=== PATIENT | female | born 1945 | race Caucasian/White ===

== ENCOUNTER 2017-07-24 18:54 | Emergency (ER) | payer OTHER, MEDICARE ==
--- NOTE | 2017-07-24 19:43 | EDPHY ---
H & P Stated Complaint: R breast partial mastectomy 3 wks ago, today swelling pain and redness Time Seen by Provider: 07/24/17 19:07 HPI/ROS: CHIEF COMPLAINT: Redness and swelling right axilla HISTORY OF PRESENT ILLNESS: 72-year-old female with breast cancer s/p right mastectomy and axillary lymph node dissection 3 weeks ago presents with redness and swelling in the right axilla. Onset of swelling and redness today, gradually increasing since then. Associated with moderate pain. The pain increases with right arm movement. No drainage or fever. REVIEW OF SYSTEMS: complete 10 point ROS negative except at noted in the HPI - Medical/Surgical History Hx Asthma: No Hx Chronic Respiratory Disease: No Hx Diabetes: No Hx Cardiac Disease: No Hx Renal Disease: No Hx Cirrhosis: No Hx Alcoholism: No Hx HIV/AIDS: No Hx Splenectomy or Spleen Trauma: No Other PMH: breast [place], [place], deaf in right ear, hearing loss left ear - Social History Smoking Status: Never smoked - Physical Exam Exam: General Appearance: Alert, pleasant Eyes: Pupils equal and round, no conjunctival pallor ENT, Mouth: Mucous membranes moist Neck: Normal inspection Respiratory: Lungs are clear to auscultation Cardiovascular: Regular rate and rhythm Gastrointestinal: Abdomen is soft and nontender Neurological: A&O, nonfocal, normal gait Skin: Warm and dry Extremities: Right axillary area-linear surgical incision intact, with erythema adjacent to the incision; 5cm area fluctuance under the surgical incision Psychiatric: Mood and affect normal Constitutional: Initial Vital Signs Temperature (C) 37.3 C 07/24/17 18:57 Heart Rate 90 07/24/17 18:57 Respiratory Rate 18 07/24/17 18:57 Blood Pressure 163/86 H 07/24/17 18:57 O2 Sat (%) 95 07/24/17 18:57 O2 Delivery Mode Room Air Allergies/Adverse Reactions: doxycycline Allergy (Verified 07/24/17 18:57) Sulfa (Sulfonamide Antibiotics) Allergy (Verified 07/24/17 18:57) Home Medications: Medication Instructions Recorded Aspirin 07/24/17 Calcium 07/24/17 Cephalexin [Keflex (*)] 500 mg PO TID #15 cap 07/24/17 Crestor 07/24/17 Medical Decision Making ED Course/Re-evaluation: This pt presents with right axillary cellulitis after lymph node dissection. Subcutaneous fluid collection concerning for abscess versus seroma. Consulted Dr. Lawson. Dr. Lawson saw pt in ED, aspirated serous fluid from subQ fluid collection. Sent for culture. Presentation c/w cellulitis. Doubt abscess. Rochephin 1gm IV given. Rx for Keflex. Pt plans to f/u surgeon tomorrow. Differential Diagnosis: includes though not limited to abscess, cellulitis, seroma, lymphangitis, DVT - Data Points Laboratory Results: Laboratory Results 07/24/17 19:45 07/24/17 19:45 07/24/17 07/24/17 19:45 19:45 WBC 10.57 10^3/uL H 10^3/uL (3.80-9.50) RBC 4.22 10^6/uL 10^6/uL (4.18-5.33) Hgb 13.2 g/dL g/dL (12.6-16.3) Hct 39.7 % % (38.0-47.0) MCV 94.1 fL fL (81.5-99.8) MCH 31.3 pg pg (27.9-34.1) MCHC 33.2 g/dL g/dL (32.4-36.7) RDW 13.0 % % (11.5-15.2) Plt Count 186 10^3/uL 10^3/uL (150-400) MPV 9.3 fL fL (8.7-11.7) Neut % (Auto) 77.5 % H % (39.3-74.2) Lymph % (Auto) 14.1 % L % (15.0-45.0) [place] % (Auto) 6.9 % % (4.5-13.0) Eos % (Auto) 0.9 % % (0.6-7.6) Baso % (Auto) 0.2 % L % (0.3-1.7) Nucleat RBC Rel Count 0.0 % % (0.0-0.2) Absolute Neuts (auto) 8.19 10^3/uL H 10^3/uL (1.70-6.50) Absolute Lymphs (auto) 1.49 10^3/uL 10^3/uL (1.00-3.00) Absolute Monos (auto) 0.73 10^3/uL 10^3/uL (0.30-0.80) Absolute Eos (auto) 0.10 10^3/uL 10^3/uL (0.03-0.40) Absolute Basos (auto) 0.02 10^3/uL 10^3/uL (0.02-0.10) Absolute Nucleated RBC 0.00 10^3/uL 10^3/uL (0-0.01) Immature Gran % 0.4 % % (0.0-1.1) Immature Gran # 0.04 10^3/uL 10^3/uL (0.00-0.10) Sodium 139 mEq/L mEq/L (135-145) Potassium 4.1 mEq/L mEq/L (3.5-5.2) Chloride 103 mEq/L mEq/L (97-110) Carbon Dioxide 27 mEq/l mEq/l (22-31) Anion Gap 9 mEq/L mEq/L (8-16) BUN 17 mg/dL mg/dL (7-23) Creatinine 0.8 mg/dL mg/dL (0.6-1.0) Estimated GFR > 60 Glucose 100 mg/dL mg/dL (70-100) Calcium 9.9 mg/dL mg/dL (8.5-10.4) Microbiology Results: MICROBIOLOGY 07/24/17 20:25 Axilla - Swab Gram Stain - Final Medications Given: Discontinued Medications Ceftriaxone Sodium/Dextrose (Rocephin 1 Gm (Premix)) 50 mls @ 100 mls/hr IV EDNOW ONE PRN Reason: Protocol Stop: 07/24/17 20:54 Last Admin: 07/24/17 20:28 Dose: 50 mls Departure - Departure Disposition: Home, Routine, Self-Care Clinical Impression: Postoperative seroma of subcutaneous tissue after non-dermatologic procedure Cellulitis Qualifiers: Site of cellulitis: extremity Site of cellulitis of extremity: axilla Laterality: right Qualified Code(s): L03.111 - Cellulitis of right axilla Condition: Good Instructions: Cephalexin (By mouth), Cellulitis (ED), Seroma (DC) Additional Instructions: Ibuprofen 600 mg 3 times daily while the pain persists. Keflex 1 tablet 3 times daily for cellulitis. Followup with your surgeon. return for worsening symptoms or any concerns. Referrals: Cristo Lawson MD [Medical Doctor] - As per Instructions Prescriptions: Cephalexin [Keflex (*)] 500 mg PO TID #15 cap
[2017-07-24 19:56] LABS: PLATELET COUNT 186 10^3/uL (150-400)
[2017-07-24] MEDS ORDERED: cefTRIAXone 1 GM/DEXTROSE 1 GM/50 ML BAG IV ONE (20:24)
--- NOTE | 2017-07-24 20:32 | PDCONSULT ---
[employer] Note: Acute Care Surgery Consult requested by Dr. Lujan 72 y/o female s/p right partial mastectomy and sentinel node biopsy for a T2N0 right breast ductal cancer at [facility]. 6 sentinel nodes were removed and no drain was placed. She was recovering uneventfully until she and her boarded a plane and flew to [place] to visit family. On the plane she had rather sudden onset of right axillary swelling and pain and felt cold. She denies rigors. She presented to the [facility] and was seen by Dr. Lujan and surgical consult was requested. 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 fluid sent for culture/GS wbc 10.9 Imp:1. right axillary cellulitis/no evidence of abscess 2. stage IIA right breast cancer s/p PM/SLN bx/IOR Rec: Cetriaxone 1 gm IVPB Keflex 500mg po QID monitor cultures for growth and tailor abx as indicated Almaz and her are returning to [place] tomorrow morning and will obtain clinical follow up there. Danelle Lawson MD, FACS
[2017-07-24] MEDS ORDERED: CEPHALEXIN 500MG PREPACK#4 BTL TAKEHOME ONE (20:46)
[2017-07-24 21:19] VITALS: BP 168/83
[2017-07-24] MEDS ORDERED: ACETAMINOPHEN 500 MG TAB PO ONE (21:19)
== END 2017-07-24 21:30 | disposition home or self-care (01) ==
DX: L76.34 Postprocedural seroma of skin and subcutaneous tissue following other procedure (principal); Z79.82 Long term (current) use of aspirin; Z85.3 Personal history of malignant neoplasm of breast
CPT/HCPCS: 96365; 99284; J0696